=== PATIENT | female | born 1955 | race Caucasian/White ===

== ENCOUNTER 2021-06-22 14:52 | Inpatient (IN) | payer OTHER ==
[~2021-06-22] VITALS: Ht 170.2 cm; Wt 95.0 kg
[2021-06-22 15:54] LABS: HEMOGLOBIN 15.9 gm/dl (12.3-15.3); RED BLOOD COUNT 5.3 M/UL (4.00-5.10); WHITE BLOOD COUNT 7.8 K/UL (4.5-11.0)
[2021-06-22 16:19] LABS: BUN/CREATININE RATIO 15 (0-10)
[2021-06-23 03:32] LABS: HEMOGLOBIN 14.6 gm/dl (12.3-15.3); RED BLOOD COUNT 4.91 M/UL (4.00-5.10)
[2021-06-23 03:37] LABS: WHITE BLOOD COUNT 4.2 K/UL (4.5-11.0)
[2021-06-23 04:12] LABS: BUN/CREATININE RATIO 18 (0-10)
--- NOTE | 2021-06-23 11:45 | NUR ---
WHEN PATIENT IS MOVING HER OXYGEN DROPS TO 88% TO 86% AND THEN WHEN RESTING IT GOES BACK UP TO 90-93%. EDUCATED PATIENT ON THE IMPORTANTANCE OF RESTING AND NOT MOVING SO MUCH SO HER OXYGEN DOESNT DROP. WILL CONTINUE TO OBSERVE.
[2021-06-24 03:36] LABS: HEMOGLOBIN 16.1 gm/dl (12.3-15.3)
[2021-06-24 03:37] LABS: RED BLOOD COUNT 5.52 M/UL (4.00-5.10); WHITE BLOOD COUNT 7.8 K/UL (4.5-11.0)
[2021-06-24 03:45] LABS: BUN/CREATININE RATIO 27 (0-10)
--- NOTE | 2021-06-24 09:43 | NUR ---
PATIENT HAD A BLOOD PRESSURE OF 160/100, PATIENT GIVEN PRN IVP HYDRALIZINE. BLOOD PRESSURE RECHECKED 1 HOUR LATER AND IS 154/86. WILL CONTINUE TO MONITOR.
[2021-06-25 03:38] LABS: HEMOGLOBIN 15.1 gm/dl (12.3-15.3); RED BLOOD COUNT 5.09 M/UL (4.00-5.10); WHITE BLOOD COUNT 7.5 K/UL (4.5-11.0)
[2021-06-25 04:05] LABS: BUN/CREATININE RATIO 27 (0-10)
--- NOTE | 2021-06-25 10:37 | NUR ---
KENNY MCCALL WANTS PATIENT SENT TO ICU. PATIENT AGREES VERBALLY. ROOM REQUEST ASSIGNED [id number].
--- NOTE | 2021-06-25 11:04 | NUR ---
REPORT CALLED TO ROZINA ON ICU
[2021-06-26 05:28] LABS: HEMOGLOBIN 15.8 gm/dl (12.3-15.3); RED BLOOD COUNT 5.29 M/UL (4.00-5.10)
[2021-06-26 05:39] LABS: WHITE BLOOD COUNT 11.6 K/UL (4.5-11.0)
[2021-06-26 05:49] LABS: BUN/CREATININE RATIO 31 (0-10)
[2021-06-27 05:19] LABS: RED BLOOD COUNT 5.57 M/UL (4.00-5.10); WHITE BLOOD COUNT 13.1 K/UL (4.5-11.0)
[2021-06-27 05:33] LABS: BUN/CREATININE RATIO 34 (0-10)
[2021-06-28 05:13] LABS: HEMOGLOBIN 16.3 gm/dl (12.3-15.3); RED BLOOD COUNT 5.45 M/UL (4.00-5.10); WHITE BLOOD COUNT 12.8 K/UL (4.5-11.0)
[2021-06-28 05:31] LABS: BUN/CREATININE RATIO 41 (0-10)
[2021-06-29 04:19] LABS: HEMOGLOBIN 15.8 gm/dl (12.3-15.3); RED BLOOD COUNT 5.27 M/UL (4.00-5.10); WHITE BLOOD COUNT 12.1 K/UL (4.5-11.0)
[2021-06-29 05:16] LABS: BUN/CREATININE RATIO 41 (0-10)
[2021-06-30 04:13] LABS: HEMOGLOBIN 15.2 gm/dl (12.3-15.3); RED BLOOD COUNT 5.15 M/UL (4.00-5.10); WHITE BLOOD COUNT 11.9 K/UL (4.5-11.0)
[2021-06-30 04:39] LABS: BUN/CREATININE RATIO 41 (0-10)
[2021-07-01 03:46] LABS: HEMOGLOBIN 15.8 gm/dl (12.3-15.3); RED BLOOD COUNT 5.3 M/UL (4.00-5.10); WHITE BLOOD COUNT 13.1 K/UL (4.5-11.0)
[2021-07-01 04:37] LABS: BUN/CREATININE RATIO 44 (0-10)
[2021-07-02 02:32] LABS: RED BLOOD COUNT 5.3 M/UL (4.00-5.10); WHITE BLOOD COUNT 13.3 K/UL (4.5-11.0)
[2021-07-02 02:58] LABS: BUN/CREATININE RATIO 41 (0-10)
[2021-07-03 03:03] LABS: HEMOGLOBIN 16.3 gm/dl (12.3-15.3); RED BLOOD COUNT 5.49 M/UL (4.00-5.10)
[2021-07-03 03:20] LABS: BUN/CREATININE RATIO 45 (0-10)
[2021-07-04 03:22] LABS: HEMOGLOBIN 16.2 gm/dl (12.3-15.3); RED BLOOD COUNT 5.41 M/UL (4.00-5.10); WHITE BLOOD COUNT 14.2 K/UL (4.5-11.0)
[2021-07-04 04:10] LABS: BUN/CREATININE RATIO 39 (0-10)
[2021-07-05 03:18] LABS: HEMOGLOBIN 16.7 gm/dl (12.3-15.3); RED BLOOD COUNT 5.59 M/UL (4.00-5.10); WHITE BLOOD COUNT 17.3 K/UL (4.5-11.0)
[2021-07-05 03:38] LABS: BUN/CREATININE RATIO 46 (0-10)
[2021-07-06 03:51] LABS: HEMOGLOBIN 16.7 gm/dl (12.3-15.3); RED BLOOD COUNT 5.54 M/UL (4.00-5.10); WHITE BLOOD COUNT 17.5 K/UL (4.5-11.0)
[2021-07-06 04:13] LABS: BUN/CREATININE RATIO 46 (0-10)
[2021-07-07 05:19] LABS: HEMOGLOBIN 17.1 gm/dl (12.3-15.3); RED BLOOD COUNT 5.88 M/UL (4.00-5.10); WHITE BLOOD COUNT 21.6 K/UL (4.5-11.0)
[2021-07-07 05:59] LABS: BUN/CREATININE RATIO 38 (0-10)
[2021-07-08 05:01] LABS: HEMOGLOBIN 16.5 gm/dl (12.3-15.3); RED BLOOD COUNT 5.47 M/UL (4.00-5.10)
[2021-07-08 05:03] LABS: WHITE BLOOD COUNT 14.9 K/UL (4.5-11.0)
[2021-07-08 05:41] LABS: BUN/CREATININE RATIO 40 (0-10)
[2021-07-09 06:12] LABS: HEMOGLOBIN 15.3 gm/dl (12.3-15.3); RED BLOOD COUNT 5.34 M/UL (4.00-5.10); WHITE BLOOD COUNT 15.2 K/UL (4.5-11.0)
[2021-07-09 06:28] LABS: BUN/CREATININE RATIO 44 (0-10)
[2021-07-10 06:24] LABS: BUN/CREATININE RATIO 49 (0-10)
[2021-07-10 06:36] LABS: WHITE BLOOD COUNT 13.8 K/UL (4.5-11.0)
[2021-07-11 04:41] LABS: HEMOGLOBIN 14.5 gm/dl (12.3-15.3); RED BLOOD COUNT 4.9 M/UL (4.00-5.10); WHITE BLOOD COUNT 12.4 K/UL (4.5-11.0)
[2021-07-11 05:16] LABS: BUN/CREATININE RATIO 49 (0-10)
[2021-07-12 05:14] LABS: HEMOGLOBIN 15.3 gm/dl (12.3-15.3); RED BLOOD COUNT 5.1 M/UL (4.00-5.10)
[2021-07-12 05:29] LABS: WHITE BLOOD COUNT 15.6 K/UL (4.5-11.0)
[2021-07-12 05:50] LABS: BUN/CREATININE RATIO 49 (0-10)
[2021-07-13 04:53] LABS: HEMOGLOBIN 16.4 gm/dl (12.3-15.3); RED BLOOD COUNT 5.41 M/UL (4.00-5.10); WHITE BLOOD COUNT 16.7 K/UL (4.5-11.0)
[2021-07-13 05:25] LABS: BUN/CREATININE RATIO 59 (0-10)
[2021-07-14 05:12] LABS: HEMOGLOBIN 17.9 gm/dl (12.3-15.3); RED BLOOD COUNT 5.93 M/UL (4.00-5.10)
[2021-07-14 05:15] LABS: WHITE BLOOD COUNT 22.1 K/UL (4.5-11.0)
[2021-07-14 05:33] LABS: BUN/CREATININE RATIO 60 (0-10)
[2021-07-15 05:43] LABS: HEMOGLOBIN 16.1 gm/dl (12.3-15.3); RED BLOOD COUNT 5.89 M/UL (4.00-5.10); WHITE BLOOD COUNT 17.2 K/UL (4.5-11.0)
--- NOTE | 2021-07-15 19:09 | NUR ---
1641 MD AT HEAD OF BED IN POSITION TO INTUBATE, ORDERED NURSE TO GIVE ETOMIDATE 40MG, MEDICATION WAS BEING GIVEN PATIENT BECAME BRADYCARDIC AND WENT ASYSTOLE, CPR WAS INTITATED.
[2021-07-16 08:50] LABS: HEMOGLOBIN 17.3 gm/dl (12.3-15.3); RED BLOOD COUNT 5.74 M/UL (4.00-5.10)
[2021-07-16 09:10] LABS: WHITE BLOOD COUNT 30.5 K/UL (4.5-11.0)
[2021-07-17 07:45] LABS: HEMOGLOBIN 14.5 gm/dl (12.3-15.3); RED BLOOD COUNT 4.8 M/UL (4.00-5.10); WHITE BLOOD COUNT 20.7 K/UL (4.5-11.0)
[2021-07-18 05:40] LABS: HEMOGLOBIN 10.5 gm/dl (12.3-15.3); RED BLOOD COUNT 3.58 M/UL (4.00-5.10)
[2021-07-18 15:11] LABS: HEPARIN INDUCED PLATELET AB 0.098 OD (0.000-0.400)
[2021-07-19 05:11] LABS: HEMOGLOBIN 8.6 gm/dl (12.3-15.3); WHITE BLOOD COUNT 18.7 K/UL (4.5-11.0)
[2021-07-19 05:16] LABS: RED BLOOD COUNT 2.81 M/UL (4.00-5.10)
[2021-07-19 16:54] LABS: WHITE BLOOD COUNT 16.9 K/UL (4.5-11.0)
[2021-07-19 17:07] LABS: RED BLOOD COUNT 2.29 M/UL (4.00-5.10)
[2021-07-19 17:08] LABS: HEMOGLOBIN 6.9 gm/dl (12.3-15.3)
[2021-07-20 05:39] LABS: HEMOGLOBIN 7.6 gm/dl (12.3-15.3)
[2021-07-20 05:41] LABS: RED BLOOD COUNT 2.54 M/UL (4.00-5.10); WHITE BLOOD COUNT 12.3 K/UL (4.5-11.0)
[2021-07-21 04:40] LABS: HEMOGLOBIN 6.4 gm/dl (12.3-15.3); RED BLOOD COUNT 2.15 M/UL (4.00-5.10); WHITE BLOOD COUNT 6.2 K/UL (4.5-11.0)
[2021-07-21 06:09] LABS: HBSAG SCREEN Negative (Negative); HEP A AB, IGM Negative (Negative); HEP B CORE AB, IGM Negative (Negative); HEP C VIRUS AB <0.1 (0.0-0.9)
[2021-07-21 12:21] LABS: HEMOGLOBIN 9.9 gm/dl (12.3-15.3)
[2021-07-22 04:28] LABS: HEMOGLOBIN 9.2 gm/dl (12.3-15.3); WHITE BLOOD COUNT 5.8 K/UL (4.5-11.0)
[2021-07-22 04:38] LABS: RED BLOOD COUNT 3.28 M/UL (4.00-5.10)
[2021-07-23 07:02] LABS: HEMOGLOBIN 9.3 gm/dl (12.3-15.3); RED BLOOD COUNT 3.24 M/UL (4.00-5.10); WHITE BLOOD COUNT 4.9 K/UL (4.5-11.0)
[2021-07-24 05:37] LABS: HEMOGLOBIN 9.8 gm/dl (12.3-15.3); RED BLOOD COUNT 3.35 M/UL (4.00-5.10); WHITE BLOOD COUNT 6.1 K/UL (4.5-11.0)
--- NOTE | 2021-07-24 19:00 | NUR ---
TUBE FEEDING RESIDUAL > 500ML . TUBE FEEDING HELD.
--- NOTE | 2021-07-24 22:00 | NUR ---
TUBE FEEDING RESIDUAL 150ML . PREVIOUSLY OBTAINED 500 ML WAS NOT REPLACED. WILL CONTINUE TO HOLD TUBE FEEDING AT THIS TIME.
[2021-07-25 07:55] LABS: HEMOGLOBIN 9.9 gm/dl (12.3-15.3); RED BLOOD COUNT 3.43 M/UL (4.00-5.10)
[2021-07-25 15:13] LABS: HEMATOCRIT 29.9 % (34.0-46.6)
[2021-07-25 16:13] LABS: HEPARIN INDUCED PLATELET AB 0.075 OD (0.000-0.400)
[2021-07-26 10:25] LABS: HEMOGLOBIN 10.1 gm/dl (12.3-15.3); RED BLOOD COUNT 3.5 M/UL (4.00-5.10)
[2021-07-27 06:01] LABS: HEMOGLOBIN 9.4 gm/dl (12.3-15.3); RED BLOOD COUNT 3.24 M/UL (4.00-5.10); WHITE BLOOD COUNT 6.2 K/UL (4.5-11.0)
[2021-07-30 13:11] LABS: VITAMIN E(ALPHA TOCOPHEROL) 12.2 mg/L (9.0-29.0); VITAMIN E(GAMMA TOCOPHEROL) 5.2 mg/L (0.5-4.9)
== END 2021-07-27 13:57 | disposition expired | DRG 207 ==
LOC: ER1 14:52 → PROG CARE 18:01 → CCU 18:01 → M/S 18:01 → CDU 18:01 → M/S 22:24 → PROG CARE 06-24 14:14 → CCU 06-25 11:57 → PROG CARE 06-28 17:16 → CCU 07-06 11:41
PROVIDERS: Internal Medicine; Internal Medicine Nephrology; Internal Medicine Pulmonary Disease; Nurse Practitioner; Physician Assistant Medical; Registered Nurse; ADMIT Internal Medicine
PROC: 8E0ZXY6 Isolation (ICD-10-PCS; 2021-06-22)
PROC: XW033E5 Introduction of Remdesivir Anti-infective into Peripheral Vein, Percutaneous Approach, New Technology Group 5 (ICD-10-PCS; 2021-06-22)
PROC: XW033H5 Introduction of Tocilizumab into Peripheral Vein, Percutaneous Approach, New Technology Group 5 (ICD-10-PCS; 2021-06-22)
PROC: 5A0935A Assistance with Respiratory Ventilation, Less than 24 Consecutive Hours, High Flow/Velocity Cannula (ICD-10-PCS; 2021-06-22)
PROC: 3E02340 Introduction of Influenza Vaccine into Muscle, Percutaneous Approach (ICD-10-PCS; 2021-06-22)
PROC: 3E0333Z Introduction of Anti-inflammatory into Peripheral Vein, Percutaneous Approach (ICD-10-PCS; 2021-06-24)
PROC: 5A0955A Assistance with Respiratory Ventilation, Greater than 96 Consecutive Hours, High Flow/Velocity Cannula (ICD-10-PCS; 2021-06-24)
PROC: 5A09457 Assistance with Respiratory Ventilation, 24-96 Consecutive Hours, Continuous Positive Airway Pressure (ICD-10-PCS; 2021-07-07)
PROC: B24BZZZ Ultrasonography of Heart with Aorta (ICD-10-PCS; 2021-07-08)
PROC: 5A1955Z Respiratory Ventilation, Greater than 96 Consecutive Hours (ICD-10-PCS; 2021-07-15)
PROC: 0BH17EZ Insertion of Endotracheal Airway into Trachea, Via Natural or Artificial Opening (ICD-10-PCS; 2021-07-15)
PROC: 02HV33Z Insertion of Infusion Device into Superior Vena Cava, Percutaneous Approach (ICD-10-PCS; 2021-07-15)
PROC: B548ZZA Ultrasonography of Superior Vena Cava, Guidance (ICD-10-PCS; 2021-07-15)
PROC: 3E033XZ Introduction of Vasopressor into Peripheral Vein, Percutaneous Approach (ICD-10-PCS; principal; 2021-07-16)
PROC: 30233R1 Transfusion of Nonautologous Platelets into Peripheral Vein, Percutaneous Approach (ICD-10-PCS; 2021-07-19)
PROC: 30233N1 Transfusion of Nonautologous Red Blood Cells into Peripheral Vein, Percutaneous Approach (ICD-10-PCS; 2021-07-19)
PROC: 02HV33Z Insertion of Infusion Device into Superior Vena Cava, Percutaneous Approach (ICD-10-PCS; 2021-07-19)
PROC: B548ZZA Ultrasonography of Superior Vena Cava, Guidance (ICD-10-PCS; 2021-07-19)
PROC: 5A1D70Z Performance of Urinary Filtration, Intermittent, Less than 6 Hours Per Day (ICD-10-PCS; 2021-07-19)
PROC: 5A1D70Z Performance of Urinary Filtration, Intermittent, Less than 6 Hours Per Day (ICD-10-PCS; 2021-07-21)
PROC: 5A1D70Z Performance of Urinary Filtration, Intermittent, Less than 6 Hours Per Day (ICD-10-PCS; 2021-07-22)
PROC: 4A00X4Z Measurement of Central Nervous Electrical Activity, External Approach (ICD-10-PCS; 2021-07-24)
PROC: 5A1D70Z Performance of Urinary Filtration, Intermittent, Less than 6 Hours Per Day (ICD-10-PCS; 2021-07-26)
DX: U07.1 COVID-19 (principal); J12.82 Pneumonia due to coronavirus disease 2019; N17.0 Acute kidney failure with tubular necrosis; Z51.5 Encounter for palliative care; A41.89 Other specified sepsis; R65.21 Severe sepsis with septic shock; J80 Acute respiratory distress syndrome; J15.9 Unspecified bacterial pneumonia; G92.8 Other toxic encephalopathy; E87.2 Acidosis; E87.0 Hyperosmolality and hypernatremia; I82.4Z1 Acute embolism and thrombosis of unspecified deep veins of right distal lower extremity; D61.818 Other pancytopenia; L97.428 Non-pressure chronic ulcer of left heel and midfoot with other specified severity; L97.418 Non-pressure chronic ulcer of right heel and midfoot with other specified severity; E87.1 Hypo-osmolality and hyponatremia; I46.8 Cardiac arrest due to other underlying condition; L89.312 Pressure ulcer of right buttock, stage 2; D72.828 Other elevated white blood cell count; T38.0X5A Adverse effect of glucocorticoids and synthetic analogues, initial encounter; E87.8 Other disorders of electrolyte and fluid balance, not elsewhere classified; R74.01 Elevation of levels of liver transaminase levels; D64.9 Anemia, unspecified; F41.9 Anxiety disorder, unspecified; I07.1 Rheumatic tricuspid insufficiency; I27.20 Pulmonary hypertension, unspecified; E66.9 Obesity, unspecified; D75.1 Secondary polycythemia; E11.65 Type 2 diabetes mellitus with hyperglycemia; D69.6 Thrombocytopenia, unspecified; E87.6 Hypokalemia; K21.9 Gastro-esophageal reflux disease without esophagitis; Z23 Encounter for immunization; Z99.81 Dependence on supplemental oxygen; Z99.2 Dependence on renal dialysis; Z68.31 Body mass index [BMI] 31.0-31.9, adult; Z79.4 Long term (current) use of insulin
CPT/HCPCS: ECHO; 31500; 36415; 36600; 70450; 71045; 80048; 80053; 80074; 80202; 81001; 82140; 82550; 82553; 82607; 82728; 82746; 82747; 82803; 82962; 83036; 83605; 83615; 83735; 83874; 83880; 84100; 84132; 84439; 84443; 84446; 84484; 85014; 85018; 85025; 85027; 85379; 85384; 85610; 85730; 86140; 86156; 86850; 86900; 86901; 86920; 87040; 87081; 90935; 90937; 93005; 93306; 93970; 94002; 94003; 94640; 94660; 94664; 94760; 95819; 96374; 97110-GP-CQ; 97162; 97165; 97530; 97530-GP-CQ; 99285; A6212; C1752; C9113; J0360; J0692; J0696; J1100; J1205; J1644; J1650; J1720; J1940; J2185; J2250; J2370; J2405; J2704; J3010; J3370; J7030; J7050; J7070; J7120; P9016; P9035; P9047; Q0249; Q9967; U0002